=== PATIENT | male | born 1960 | race Caucasian/White ===

== ENCOUNTER 2024-07-22 12:10 | Emergency (ER) | payer BC ==
--- NOTE | 2024-07-22 12:49 | RAD REPORT ---
EXAMINATION: CT HEAD WITHOUT CONTRAST CLINICAL INDICATION: Male, 63 years old.head injury, on blood thinners, posterior scalp TECHNIQUE: Axial CT images from the skull base to the vertex without intravenous contrast. Coronal an d sagittal reformatted images were created from the data set. One or more of the following dose reduction techniques were used: Automated exposure control, adjustment of the mA and/or kV according to patient size, and/or iterative reconstruction. Unless otherwise specified, incidental findings do not require dedicated imaging follow-up. [id number]. COMPARISON: No prior exam. FINDINGS: INTRACRANIAL: Small dural based high attenuation structure along the right intracerebral falx on imag e 25, series 201 measuring 8 x 3 mm. This has a convex appearance. Slight asymmetric thickening of the left aspect of the tentorium concerning for small one of subdural hematoma. No hydrocephalus. No mass effect or midline shift. No significant white matter disease. VASCULATURE: No visualized abnormalities in the arteries or dural venous sinuses. SCALP/SKULL: Scalp hematoma overlying the vertex of the skull. SINUSES: The visualized paranasal sinuses and mastoid air cells are predominantly clear. IMPRESSION: Asymmetric hyperdensity along the left tentorium aspect of the cerebellar tentorium consistent with s mall subdural hematoma. A dural based focus of high attenuation along the right aspect of the intracerebral falx favored to represent a small meningioma, less likely extra-axial hemorrhage. No sk ull fracture. Regarding subdural hematoma, conveyed to Dr. Connelly by Dr. Becerra at [id number] on 07/22/24.
--- NOTE | 2024-07-22 13:27 | EDPHYS ---
Physician Documentation [facility] Name: Jh Bauman Age: 63 yrs Sex: Male : 1960 Arrival Date: 07/22/2024 Time: 12:10 Bed Treatment Private MD: ED Physician Yordy Connelly HPI: 07/22 13:16 This 63 yrs old Male presents to ER via Ambulatory with complaints of Laceration To rn Head. 13:17 The patient or guardian reports injury, a laceration. The complaints affect the right rn side of the back of head. Onset: The symptoms/episode began/occurred just prior to arrival. Severity of symptoms: At their worst the symptoms were mild, in the emergency department the symptoms are unchanged. The patient has not experienced similar symptoms in the past. Patient reports loading boat on boat ramp, slipped and fell, hit back of head, small laceration. No headache. No vomiting. Remembers all events. No LOC. Takes Effient for cardiac disease with 2 stents.. Historical: - Allergies: 12:22 No Known Allergies; aa5 - PMHx: 12:19 Hypertensive disorder; Hypercholesterolemia; aa5 12:22 Bladder Cancer; aa5 - PSHx: 12:19 heart stents; aa5 - Immunization history:: Last tetanus immunization: unknown. - Infectious Disease History:: Denies. - Social history:: Smoking status: Patient reports the use of cigarette tobacco products. - Family history:: not pertinent. - Hospitalizations: : No recent hospitalization is reported. ROS: 13:17 Constitutional: Negative for fever, chills, and weight loss, Cardiovascular: Negative rn for chest pain, palpitations, and edema, Respiratory: Negative for shortness of breath, cough, wheezing, and pleuritic chest pain, Abdomen/GI: Negative for abdominal pain, nausea, vomiting, diarrhea, and constipation, Back: Negative for injury and pain, MS/Extremity: Negative for injury and deformity, Skin: Positive for laceration Neuro: Positive for laceration to scalp Exam: 13:17 Constitutional: This is a well developed, well nourished patient who is awake, alert, rn and in no acute distress. Skin: Warm, dry. 4 cm superficial laceration to the posterior scalp. No active bleeding. Clot present. No foreign body. Neuro: Awake and alert, GCS 15, oriented to person, place, time, and situation. Vital Signs: 12:15 BP 173 / 109; Pulse 76; Resp 18 S; Temp 98(TE); Pulse Ox 99% on R/A; Weight 115.67 kg aa5 (R); Height 5 ft. 11 in. (R); 12:55 BP 140 / 86; Pulse 72; Resp 18 S; Pulse Ox 97% on R/A; aa5 14:46 BP 138 / 72; Pulse 74; Resp 16; Pulse Ox 100% ; ko1 12:15 Body Mass Index 35.56 (115.67 kg, 180.34 cm) aa5 [place] Coma Score: 13:17 Eye Response: spontaneous(4). Motor Response: obeys commands(6). Verbal Response: rn oriented(5). Total: 15. 13:24 Eye Response: spontaneous(4). Motor Response: obeys commands(6). Verbal Response: rn oriented(5). Total: 15. Laceration: 14:24 Wound Repair of 4cm ( 1.6in ) subcutaneous laceration to right side of the back of rn head. Distal neuro/vascular/tendon intact. Wound prep: Extensive cleansing by nurse, Wound irrigation by nurse, Wound explored extensively. Skin closed with 6 1-0 [place] using staple gun. Dressed with Kerlix. Patient tolerated well. MDM: 12:13 Patient medically screened. rn 13:24 Differential diagnosis: Contusion of Hematoma on Laceration of Intracranial bleed- rn Concussion cerebral contusion. Data reviewed: vital signs, nurses notes, radiologic studies, CT scan, and as a result, I will discharge patient. Counseling: I had a detailed discussion with the patient and/or guardian regarding the historical points, exam findings, and any diagnostic results supporting the discharge/admit diagnosis, lab results, radiology results, the need to transfer to another facility, for higher level of care, [facility] does not immediately have the required specialist. 07/22 12:21 Order name: CT Head Brain wo Cont; Complete Time: 12:51 rn 07/22 12:21 Order name: Wound Care; Complete Time: 13:45 rn Administered Medications: 13:54 Drug: morphine IM 4 mg IM once Route: IM; Site: left deltoid; ko1 14:26 Follow up: Response: No adverse reaction; Pain is decreased ko1 13:58 Drug: Tetanus Toxoid,Adsorbed IM 0.5 ml IM once; Provide Vaccine Information Statement ko1 (VIS). {Flight Hostess: [employer]; Exp: FriJul 21 2026; Lot #: [id number]; Series: 1 of 1; Patient Consent: Obtained; Date/Time: ; Source Name: Jh Bauman; Source Relationship: Self; Address Information: [address], [facility] [address]; ; Education: Provided; VIS Presented Date: ; VIS Publication: Tetanus/Diphtheria (Td) Vaccine VIS 01/21/2017 (historic)} Route: IM; Site: right deltoid; 14:26 Follow up: Response: No adverse reaction ko1 14:35 Drug: morphine IM 4 mg IM once Route: IM; Site: left deltoid; ko1 14:42 Follow up: Response: No adverse reaction; Medication Administered at Departure ko1 Disposition Summary: 07/22/24 13:26 Transfer Ordered Notes: Transfer Location: [facility] rn Reason: Higher level of care rn Condition: Stable rn Problem: new rn Symptoms: have improved rn Accepting Physician: (07/22/24 14:47) ko1 Diagnosis - Traumatic subdural hemorrhage rn - Laceration without foreign body of unspecified part of head home health rn Instructions: - Discharge Summary Sheet bc6 Forms: - Medication Reconciliation Form rn - SBAR form bc6 Signatures: Dispatcher [employer] EDMS Yordy Connelly MD MD rn Calderon, Audri RN RN aa5 Britany De Jesus RN RN ko1 Corrections: (The following items were deleted from the chart) 14:25 13:17 Constitutional: This is a well developed, well nourished patient who is awake, rn alert, and in no acute distress. Skin: Warm, dry. 3 cm superficial laceration to the posterior scalp. No active bleeding. Clot present. No foreign body. Neuro: Awake and alert, GCS 15, oriented to person, place, time, and situation. rn 14:47 13:26 rn ko1
--- NOTE | 2024-07-22 13:27 | ER ---
Nurse's Notes [facility] Name: Jh Bauman Age: 63 yrs Sex: Male : 1960 Arrival Date: 07/22/2024 Time: 12:10 Bed Treatment Private MD: Diagnosis: Traumatic subdural hemorrhage;Laceration without foreign body of unspecified part of head Presentation: 07/22 12:15 Chief complaint: Patient states: slipped walking on boat ramp and fell, hit head on aa5 concrete. No active bleeding noted. Denies LOC. Reports he takes anticoagulant. 12:15 Coronavirus screen: At this time, the client does not indicate any symptoms associated aa5 with coronavirus-19. Ebola Screen: Patient denies travel to an Ebola-affected area in the 21 days before illness onset. Complicating Factors: There are no complicating factors for this patient. Initial Sepsis Screen: Does the patient meet any 2 criteria? No. Patient's initial sepsis screen is negative. Does the patient have a suspected source of infection? No. Patient's initial sepsis screen is negative. Risk Assessment: Do you want to hurt yourself or someone else? Patient reports no desire to harm self or others. Onset of symptoms was July 22, 2024. 12:15 Method Of Arrival: Ambulatory aa5 12:15 Acuity: COLEMAN 2 aa5 Historical: - Allergies: 12:22 No Known Allergies; aa5 - PMHx: 12:19 Hypertensive disorder; Hypercholesterolemia; aa5 12:22 Bladder Cancer; aa5 - PSHx: 12:19 heart stents; aa5 Historical Immunization: - Administered Vaccines 14:35 morphine IM 4 mg ko1 13:58 Tetanus Toxoid,Adsorbed IM 0.5 ml ko1 Culinary Internship: registracija vozila; Exp: FriJul 21 2026; Lot #: [id number]; Series: 1 of 1; Patient Consent: Obtained; Date/Time: ; Source Name: Jh Bauman; Source Relationship: Self; Address Information: [address] [place] [id number]; ; Education: Provided; VIS Presented Date: ; VIS Publication: Tetanus/Diphtheria (Td) Vaccine VIS 01/21/2017 (historic) 13:54 morphine IM 4 mg ko1 - Immunization history:: Last tetanus immunization: unknown. - Infectious Disease History:: Denies. - Social history:: Smoking status: Patient reports the use of cigarette tobacco products. - Family history:: not pertinent. - Hospitalizations: : No recent hospitalization is reported. Screenin:32 [facility] ED Fall Risk Assessment (Adult) History of falling in the last 3 months, aa5 including since admission Yes- single mechanical fall (1 pt) Confusion or Disorientation No (0 pts) Intoxicated or Sedated No (0 pts) Impaired Gait No (0 pts) Mobility Assist Device Used No (0 pt) Altered Elimination No (0 pt) Score/Fall Risk Level 0 - 2 = Low Risk Oriented to surroundings, Maintained a safe environment, Educated pt \T\ family on fall prevention, incl call for assistance when getting out of bed. Abuse screen: Denies threats or abuse. Nutritional screening: No deficits noted. Tuberculosis screening: No symptoms or risk factors identified. Assessment: 12:16 General: Appears comfortable, Behavior is calm, cooperative. Pain: Denies pain. Neuro: aa5 Level of Consciousness is awake, alert, obeys commands, Oriented to person, place, time, situation, Moves all extremities. Gait is steady, Speech is normal, Facial symmetry appears normal. Cardiovascular: Patient's skin is warm and dry. Respiratory: Airway is patent Respiratory effort is even, unlabored, Respiratory pattern is regular, symmetrical. GI: No signs and/or symptoms were reported involving the gastrointestinal system. : No signs and/or symptoms were reported regarding the genitourinary system. EENT: No signs and/or symptoms were reported regarding the EENT system. Derm: Skin is pink, warm \T\ dry. Musculoskeletal: Range of motion: intact in all extremities. Injury Description: Laceration sustained to back of head is clean, with dry blood noted, unable to visualize laceration clearly, at this time appears approximately 1.5-2 in long. is bleeding no active bleeding noted. Vital Signs: 12:15 BP 173 / 109; Pulse 76; Resp 18 S; Temp 98(TE); Pulse Ox 99% on R/A; Weight 115.67 kg aa5 (R); Height 5 ft. 11 in. (R); 12:55 BP 140 / 86; Pulse 72; Resp 18 S; Pulse Ox 97% on R/A; aa5 14:46 BP 138 / 72; Pulse 74; Resp 16; Pulse Ox 100% ; ko1 12:15 Body Mass Index 35.56 (115.67 kg, 180.34 cm) aa5 Anthony Coma Score: 13:17 Eye Response: spontaneous(4). Motor Response: obeys commands(6). Verbal Response: rn oriented(5). Total: 15. 13:24 Eye Response: spontaneous(4). Motor Response: obeys commands(6). Verbal Response: rn oriented(5). Total: 15. ED Course: 12:12 Patient arrived in ED. mr 12:13 Yordy Connelly MD is Attending Physician. rn 12:16 Arm band placed on. aa5 12:16 Patient has correct armband on for positive identification. Bed in low position. Call aa5 light in reach. Side rails up X 1. Adult w/ patient. Pulse ox on. NIBP on. 12:19 Triage completed. aa5 12:23 Vangie Jc, RN is Primary Nurse. aa5 12:37 CT Head Brain wo Cont In Process Unspecified. EDMS 12:50 Report given to CAMERNO Garg. aa5 13:[facility] 13:40 spoke with Erica at [facility] to initiate transfer. [facility] 13:[address] Artur Rios for the patient to be transferred to [address] 14:12 Yeimy with [facility] accepted, given ETA of 15 minutes. [facility] 14:43 Provided Education on: transfer. ko1 14:43 Assist provider with laceration repair on right side of the back of head using zay. ko1 Set up tray. Performed by Yordy Connelly MD Dressed with 4X4s, Patient tolerated well. Patient did not have IV access during this emergency room visit. Wound care: ice pack applied. 14:47 Primary Nurse role handed off by Vangie Jc, CAMERON ko1 14:47 Britany De Jesus RN is Primary Nurse. ko1 Administered Medications: 13:54 Drug: morphine IM 4 mg IM once Route: IM; Site: left deltoid; ko1 14:26 Follow up: Response: No adverse reaction; Pain is decreased ko1 13:58 Drug: Tetanus Toxoid,Adsorbed IM 0.5 ml IM once; Provide Vaccine Information Statement ko1 (VIS). {Culinary Internship: registracija vozila; Exp: FriJul 21 2026; Lot #: [id number]; Series: 1 of 1; Patient Consent: Obtained; Date/Time: ; Source Name: Jh Bauman; Source Relationship: Self; Address Information: [address], [facility] [address]; ; Education: Provided; VIS Presented Date: ; VIS Publication: Tetanus/Diphtheria (Td) Vaccine VIS 01/21/2017 (historic)} Route: IM; Site: right deltoid; 14:26 Follow up: Response: No adverse reaction ko1 14:35 Drug: morphine IM 4 mg IM once Route: IM; Site: left deltoid; ko1 14:42 Follow up: Response: No adverse reaction; Medication Administered at Departure ko1 Medication: 14:43 Vaccine Information Statement (VIS) provided today. Questions and/or concerns ko1 addressed. VIS edition date: July 22, 2017. Outcome: 13:26 ER care complete, transfer ordered by . rn 14:43 Transferred by [facility] to [facility], Transfer ko1 form completed. X-rays sent w/ patient. 14:43 Condition: stable 14:43 Instructed on the need for transfer, 14:47 Patient left the ED. ko1 Signatures: Dispatcher [employer] EDLA Ifrah Barry, Reg Reg Yordy Beyer MD MD rn Calderon, Audri RN RN aa5 Britany De Jesus RN RN ko1 Eliza Greenberg 6 Corrections: (The following items were deleted from the chart) 12:20 12:15 Chief complaint: Patient states: slipped walking on boat ramp and fell, hit head aa5 on concrete. No active bleeding noted. Denies LOC. aa5 12:20 12:15 Acuity: COLEMAN 3 aa5 aa5 12:21 12:15 BP 173 / 109; Pulse 76bpm; Resp 18bpm; Spontaneous; Pulse Ox 99% RA; Temp 98F aa5 Temporal; aa5 12:38 12:12 General: Appears comfortable, Behavior is calm, cooperative, aa5 aa5 38 12:12 Pain: Denies pain. aa5 aa5 12:12 Neuro: Level of Consciousness is awake, alert, obeys commands, Oriented to aa5 person, place, time, situation, aa5 12:12 Cardiovascular: Patient's skin is warm and dry. aa5 aa5 12:12 Respiratory: Airway is patent Respiratory effort is even, unlabored, Respiratory aa5 pattern is regular, symmetrical, aa5 : 12:12 GI: No signs and/or symptoms were reported involving the gastrointestinal system. aa5 aa5 12:12 : No signs and/or symptoms were reported regarding the genitourinary system. aa5aa5 : 12:12 EENT: No signs and/or symptoms were reported regarding the EENT system. aa5 aa 12:12 Derm: Skin is pink, warm \T\ dry. aa5 aa 12:12 Musculoskeletal: Range of motion: intact in all extremities, aa5 aa : 12:12 Injury Description: Laceration sustained to back of head is clean, with dry blood aa5 noted, unable to visualize laceration clearly, at this time appears approximately 1.5-2 in long. is bleeding no active bleeding noted. aa5 12:48 12:15 Acuity: COLEMAN 3 aa5 [facility] 12:55 12:16 Neuro: Level of Consciousness is awake, alert, obeys commands, Oriented to aa5 person, place, time, situation, [facility] 14:08 13:41 spoke with Leana at [facility] to initiate transfer [place] [id number] 14:11 13:41 spoke with Erica at [facility] to initiate transfer [place] [id number] 14:43 14:43 Vaccine Information Statement (VIS) provided today. Questions and/or concerns ko1 addressed. VIS edition date: July 22, 2024 ko1
[2024-07-22] MEDS ORDERED: TDAP (DIPHTH,PERTUSS(ACELL),TET VAC) 0.5 ML VIAL IMVAC ONE (13:48)
[2024-07-22] MEDS ORDERED: MORPHINE 4 MG/ML SYR ONE ×2 (13:48→14:31)
[2024-07-22 15:49] VITALS: TEMP 98
[2024-07-22 15:52] VITALS: BP 138/72; O2SAT 100
== END 2024-07-22 14:47 | disposition short-term general hospital (02) ==
LOC: ER 12:10
DX: S06.5X0A Traumatic subdural hemorrhage without loss of consciousness, initial encounter (principal); S01.01XA Laceration without foreign body of scalp, initial encounter; W01.10XA Fall on same level from slipping, tripping and stumbling with subsequent striking against unspecified object, initial encounter; F17.210 Nicotine dependence, cigarettes, uncomplicated
CPT/HCPCS: 12032; 70450; 90471; 96372; 99285